=== PATIENT | male | born 2000 | race Caucasian/White ===

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

== ENCOUNTER 2021-09-21 07:17 | Inpatient (IN) | payer MEDICAID, OTHER ==
--- NOTE | 2021-09-21 08:44 | ED ---
Psych HPI - General Source: patient Mode of arrival: ambulatory <Farzana Recinos - Last Filed: 09/21/21 10:34> <Trent Mcintyre - Last Filed: 09/21/21 15:48> - General Chief Complaint: Psychiatric Symptoms Stated Complaint: mental health - History of Present Illness Initial Comments: 21-year-old male with no recorded medical problems presents to the emergency Department with suicidal thoughts. States he's been depressed for a significant period of time. Feelings have gotten worse over the past 3 days and he now feels suicidal. Does not have a plan. Has not done anything in an attempt to harm himself. He has never sought treatment before. He does not follow with a counselor take any medications. No hospitalizations. He smokes recreational marijuana. Denies use of alcohol or any intravenous drugs. States that majority of his depression stems from his relationships. is present in the room. Denies homicidal ideations. No auditory or visual hallucinations. No other alleviating, precipitating or modifying factors (Farzana Recinos) - Related Data Home Medications Medication Instructions Recorded Confirmed No Known Home Medications 09/21/21 09/21/21 Allergies Allergy/AdvReac Type Severity Reaction Status Date / Time No Known Allergies Allergy Verified 09/21/21 08:35 Review of Systems ROS Other: All systems not noted in ROS Statement are negative. <Farzana Recinos - Last Filed: 09/21/21 10:34> ROS Other: All systems not noted in ROS Statement are negative. <Trent Mcintyre - Last Filed: 09/21/21 15:48> ROS Statement: Those systems with pertinent positive or pertinent negative responses have been documented in the HPI. Past Medical History Past Medical History: No Reported History History of Any Multi-Drug Resistant Organisms: None Reported Past Surgical History: No Surgical Hx Reported Past Psychological History: No Psychological Hx Reported Smoking Status: Never smoker Past Alcohol Use History: Occasional Past Drug Use History: None Reported, Marijuana <Farzana Recinos - Last Filed: 09/21/21 10:34> General Exam Limitations: no limitations General appearance: alert, in no apparent distress Head exam: Present: atraumatic, normocephalic, normal inspection Eye exam: Present: normal appearance, PERRL, EOMI. Absent: scleral icterus, conjunctival injection, periorbital swelling ENT exam: Present: normal exam, mucous membranes moist Neck exam: Present: normal inspection. Absent: tenderness, meningismus, lymphadenopathy Respiratory exam: Present: normal lung sounds bilaterally. Absent: respiratory distress, wheezes, rales, rhonchi, stridor Cardiovascular Exam: Present: regular rate, normal rhythm, normal heart sounds. Absent: systolic murmur, diastolic murmur, rubs, gallop, clicks GI/Abdominal exam: Present: soft, normal bowel sounds. Absent: distended, tenderness, guarding, rebound, rigid Extremities exam: Present: normal inspection, full ROM, normal capillary refill. Absent: tenderness, pedal edema, joint swelling, calf tenderness Back exam: Present: normal inspection Neurological exam: Present: alert, oriented X3, CN II-XII intact Psychiatric exam: Present: depressed Skin exam: Present: warm, dry, intact, normal color. Absent: rash <Farzana Recinos - Last Filed: 09/21/21 10:34> Course Vital Signs 09/21/21 09/21/21 07:23 09:01 Temperature 98.4 F 96.4 F L Pulse Rate 83 77 Respiratory 20 14 Rate Blood Pressure 141/79 101/62 O2 Sat by Pulse 99 96 Oximetry Medical Decision Making <Farzana Recinos - Last Filed: 09/21/21 10:34> <Trent Mcintyre - Last Filed: 09/21/21 15:48> - Medical Decision Making Upon arrival the patient is placed into room 13. Thorough history and physical exam was performed. Patient is cleared for EPS evaluation at this time as he is not intoxicated. We are currently awaiting the recommendations (Farzana Recinos) Patient had been evaluated by EPS and felt to require inpatient psychiatric evaluation treatment. He will be voluntarily admitted to this institution. (Trent Mcintyre) Disposition <Farzana Recinos - Last Filed: 09/21/21 10:34> Is patient prescribed a controlled substance at d/c from ED?: No Decision to Admit Reason: Admit from EC Decision Date: 09/21/21 Decision Time: 15:48 <Trent Mcintyre - Last Filed: 09/21/21 15:48> Clinical Impression: Depression, Suicidal ideation Disposition: ADMITTED IP TO THIS HOSP Condition: Stable Referrals: None,Stated [Primary Care Provider] - 1-2 days
[2021-09-21 20:16] LABS: Basophils % (A) 1 %; Eosinophils # (A) 0.1 k/uL (0-0.7); Eosinophils % (A) 2 %; HCT 45.4 % (39.0-53.0); HGB 15.3 gm/dL (13.0-17.5); Lymphocytes # (A) 1.2 k/uL (1.0-4.8); Lymphocytes % (A) 25 %; MCH 30.7 pg (25.0-35.0); MCHC 33.8 g/dL (31.0-37.0); MCV 90.8 fL (80.0-100.0); Mean Platelet Volume 7.4; Monocytes # (A) 0.3 k/uL (0-1.0); Monocytes % (A) 7 %; Neutrophils # (A) 3.1 k/uL (1.3-7.7); Neutrophils % (A) 64 %; Platelet Count 246 k/uL (150-450); RDW 12.8 % (11.5-15.5); WBC 4.8 k/uL (3.8-10.6)
[2021-09-21 20:20] LABS: ALT 14 U/L (4-49); AST 18 U/L (17-59); African American GFR (CKD) >90 (>60 ml/min/1.73 sqM); Albumin 4.5 g/dL (3.5-5.0); Alkaline Phosphatase 42 U/L (38-126); Amphetamine Screen,Urine Not Detected (NotDetected); Anion Gap 9 mmol/L; Barbiturate Screen,Urine Not Detected (NotDetected); Benzodiazepines Screen,Urine Not Detected (NotDetected); Blood Urea Nitrogen 14 mg/dL (9-20); Calcium 9.8 mg/dL (8.4-10.2); Carbon Dioxide 30 mmol/L (22-30); Chloride 99 mmol/L (98-107); Cocaine Screen,Urine Not Detected (NotDetected); Glucose 91 mg/dL (74-99); Methadone Screen, Urine Not Detected (NotDetected); Non-African American GFR(CKD) >90 (>60 ml/min/1.73 sqM); Opiate Screen,Urine Not Detected (NotDetected); Oxycodone Screen, Urine Not Detected (NotDetected); Phencyclidine Screen,Urine Not Detected (NotDetected); Potassium 4.7 mmol/L (3.5-5.1); Sodium 138 mmol/L (137-145); Total Bilirubin 0.8 mg/dL (0.2-1.3); Total Protein 7.6 g/dL (6.3-8.2); Tricyclic Antidepressant,Urine Not Detected (NotDetected); Urn Cannabinoid Scrn Detected (NotDetected)
[2021-09-22] MEDS ORDERED: MAG HYDROX/AL HYDROX/SIMETH 30 ML CUP PO PRN (10:23)
[2021-09-22] MEDS ORDERED: MAGNESIUM HYDROXIDE 2,400 MG/10 ML CUP PO PRN (10:23)
[2021-09-22] MEDS ORDERED: HALOPERIDOL LACTATE 5 MG/ML 1 ML VIAL IM PRN (10:23)
[2021-09-22] MEDS ORDERED: LORazepam 1 MG TAB PO PRN (10:23)
[2021-09-22] MEDS ORDERED: ACETAMINOPHEN TAB 325 MG TAB PO PRN (10:23)
[2021-09-22] MEDS ORDERED: FLUoxetine HCL 20 MG CAP PO STA (13:48)
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
[2021-09-22] MEDS: traZODone HCL 100 MG TAB PO SCH (22:58)
--- NOTE | 2021-09-23 01:59 | P.CONS ---
History of Present Illness - Reason for Consult Consult date: 09/22/21 - History of Present Illness The patient is a 21-year-old male with no known PMH who presented to the emergency room with complaints of depression and suicidal ideation. The patient was admitted to the mental health unit where he was seen and evaluated. The patient reports that he recently found out that his is 11 someone else and that she is leaving him, which has led him to contemplate suicide. He denied any specific plan on how to harm himself. He denied any additional complaints. Denied chest pain, SOB, fever, chills, cough, nausea, vomiting, diarrhea. He reports recreational marijuana use but denied smoking or any additional substance use. Review of systems: Pertinent positives and negatives as discussed in HPI, a complete review of systems was performed and all other systems are negative. Physical examination: General: non toxic, no distress, appears at stated age, normal weight Derm: no unusual rashes/lesions no unusual ecchymoses, warm, dry Head: atraumatic, normocephalic, symmetric Eyes: EOMI, no lid lag, anicteric sclera, pupils equal round reactive to light ENT: Nose and ears atraumatic, no thrush, no pharyngeal erythema Neck: No thyromegaly, no cervical lymphadenopathy, trachea midline, supple Mouth: no lip lesion, mucus membranes moist Cardiovascular: S1S2 reg, no murmur, positive posterior tibial pulse bilateral, no edema, capillary refill less than 2 seconds Lungs: CTA bilateral, no rhonchi, no rales , no accessory muscle use Abdominal: soft, nontender to palpation, no guarding, no appreciable organomegaly, normal bowel sounds Ext: no gross muscle atrophy, muscle strength 5 out of 5 in all 4 extremities grossly, no contractures, Neuro: CN II-XI grossly intact, light touch intact all 4 extremities, finger to nose within normal limits, Psych: Alert, oriented, appropriate affect Assessment/plan Marijuana abuse -Advised on the importance of cessation Depression and suicidal ideation -Psychiatry Thank you for allowing us to participate in the care of this patient. We will follow peripherally. Do not hesitate to contact us with questions. Someone can be reached from the [facility] hospitalist group at all hours of the day at [phone]. Past Medical History Past Medical History: No Reported History History of Any Multi-Drug Resistant Organisms: None Reported Past Surgical History: No Surgical Hx Reported Past Psychological History: No Psychological Hx Reported Smoking Status: Never smoker Past Alcohol Use History: Occasional Past Drug Use History: None Reported, Marijuana Medications and Allergies Home Medications Medication Instructions Recorded Confirmed Type No Known Home Medications 09/21/21 09/21/21 History Allergies Allergy/AdvReac Type Severity Reaction Status Date / Time No Known Allergies Allergy Verified 09/21/21 08:35 Results CBC & Chem 7: 09/21/21 20:12 09/21/21 19:30
[2021-09-23 06:59] VITALS: RESP 14
[2021-09-23] MEDS: NICOTINE 14MG/24HR PATCH TRANSDERM SCH (07:42)
[2021-09-23] MEDS: FLUoxetine HCL 10 MG CAP PO SCH (07:42)
[2021-09-23 07:52] LABS: Basophils % (A) 1 %; Eosinophils # (A) 0.1 k/uL (0-0.7); Eosinophils % (A) 1 %; HCT 47.8 % (39.0-53.0); HGB 16.3 gm/dL (13.0-17.5); Lymphocytes # (A) 2.1 k/uL (1.0-4.8); Lymphocytes % (A) 34 %; MCH 31.2 pg (25.0-35.0); MCV 91.5 fL (80.0-100.0); Mean Platelet Volume 7.3; Monocytes # (A) 0.5 k/uL (0-1.0); Monocytes % (A) 7 %; Neutrophils # (A) 3.4 k/uL (1.3-7.7); Neutrophils % (A) 54 %; Platelet Count 280 k/uL (150-450); RBC 5.22 m/uL (4.30-5.90); RDW 13.2 % (11.5-15.5); WBC 6.2 k/uL (3.8-10.6)
[2021-09-23 08:09] LABS: ALT 15 U/L (4-49); AST 19 U/L (17-59); African American GFR (CKD) >90 (>60 ml/min/1.73 sqM); Alkaline Phosphatase 52 U/L (38-126); Anion Gap 9 mmol/L; Bilirubin, Delta 0.2 mg/dL (0.0-0.2); Bilirubin,Unconjugated 1.4 mg/dL (0.0-1.1); Blood Urea Nitrogen 15 mg/dL (9-20); Calcium 10.4 mg/dL (8.4-10.2); Carbon Dioxide 27 mmol/L (22-30); Chloride 103 mmol/L (98-107); Glucose 102 mg/dL (74-99); Non-African American GFR(CKD) >90 (>60 ml/min/1.73 sqM); Potassium 4.1 mmol/L (3.5-5.1); Sodium 139 mmol/L (137-145); Total Bilirubin 1.6 mg/dL (0.2-1.3); Total Protein 8.4 g/dL (6.3-8.2)
--- NOTE | 2021-09-23 12:04 | P.PN ---
Progress Note - Text Progress Note Date: 09/23/21 Interval History: Patient was seen wandering the hallways and was directable and agreeable to speak with check writer in the office. The patient reports that he has given it some thought and is feeling better. He reports that he will be staying with family members upon discharge. He understands that important thing in his life is his children. He is not reporting any suicidal or homicidal ideation, intention, and/or plan. He is denying any auditory or visual hallucinations. He is not reporting any paranoia or other delusions. The patient has been adherent with his medications and reports that he experienced some nausea however states that the nausea subsided shortly after. He is otherwise not reporting any issues regarding his sleep or his appetite. He has been attending groups with a high- level participation. Mental Status Exam: General Appearance: Patient appears to be stated age is alert, directable, and cooperative. Behavior: Patient is calmly seated without any agitated behavior. Speech: Patient's speech is fluent and nonpressured. Mood/Affect: Mood is improving mildly, affect is congruent and constricted. Suicidality/Homicidality: Patient denies having any suicidal or homicidal ideation intent or plan. Perceptions: Patient denies any visual hallucinations and denies any auditory hallucinations Though content/process: There is no evidence of any delusional thought content and thought process is linear and goal-directed. Memory and concentration: AOX3, grossly intact for the purposes of this session Judgment and insight: Improving mildly Vital Signs Temp 97.4 F L 09/23/21 06:58 Pulse 117 H 09/23/21 06:58 Resp 14 09/23/21 06:58 BP 118/76 09/21/21 22:27 Pulse Ox 97 09/23/21 06:58 Laboratory Results - Last 24 Hours 09/23/21 09/23/21 06:52 06:52 WBC 6.2 RBC 5.22 Hgb 16.3 Hct 47.8 MCV 91.5 MCH 31.2 MCHC 34.0 RDW 13.2 Plt Count 280 MPV 7.3 Neutrophils % 54 Lymphocytes % 34 Monocytes % 7 Eosinophils % 1 Basophils % 1 Neutrophils # 3.4 Lymphocytes # 2.1 Monocytes # 0.5 Eosinophils # 0.1 Basophils # 0.0 Sodium 139 Potassium 4.1 Chloride 103 Carbon Dioxide 27 Anion Gap 9 BUN 15 Creatinine 1.03 Est GFR (CKD-EPI)AfAm >90 Est GFR (CKD-EPI)NonAf >90 Glucose 102 H Calcium 10.4 H Total Bilirubin 1.6 H Conjugated Bilirubin 0.0 Unconjugated Bilirubin 1.4 H Delta Bilirubin 0.2 AST 19 ALT 15 Alkaline Phosphatase 52 Total Protein 8.4 H Albumin 5.0 TSH 2.840 Assessment Major depressive disorder Cannabis use disorder Plan: -Patient continues to meet criteria for inpatient psychiatric admission for symptom stabilization and safety. Patient has signed adult voluntary form and medication consent and was placed in patient's chart. -Medications: Prozac 30 mg by mouth daily for depression/anxiety Trazodone 100 mg by mouth at bedtime for depression/insomnia -When necessary Ativan and Haldol for agitation/aggression. -SW on board for discharge planning. Encouraged the patient to participate in milieu.
[2021-09-23] MEDS: traZODone HCL 100 MG TAB PO SCH (20:12)
[2021-09-24 05:18] VITALS: BP 110/79; PULSE 126; TEMP 97.1
[2021-09-24] MEDS: NICOTINE 14MG/24HR PATCH TRANSDERM SCH (08:21)
[2021-09-24] MEDS: FLUoxetine HCL 10 MG CAP PO SCH (08:21)
--- NOTE | 2021-09-24 12:41 | P.DS ---
Providers Date of admission: 09/21/21 20:25 Expected date of discharge: 09/24/21 Attending physician: Luigi Carlos MD Consults: 09/22/21 10:23 Consult Physician Routine Consulting Provider: Luigi Carlos Consult Reason/Comments: Inpatient Mental Health Do you want consulting provider notified?: Already Contacted Primary care physician: Stated None - Discharge Diagnosis(es) (1) Major depressive disorder Current Visit: Yes Status: Acute Priority: High (2) Cannabis abuse Current Visit: Yes Status: Chronic Priority: Medium Hospital Course: Admission HPI: Patient is a , employed, 21-year-old male with no significant psychiatric history presented to the hospital with suicidal ideation in the context of marital stressors. Patient presented to the hospital on 09/21/2021, brought into the hospital for suicidal ideation. Patient reports that he has been experiencing significant marital stressors for the past few weeks. Reports that his recently told him that she is desiring a divorce. Furthermore, the patient reports that his has been seeing someone else. He reports that he feels "destroyed." Endorses significant symptoms of depression including feeling worthless, lonely, not addressing his hygiene and grooming, and not sleeping or eating for the past 2 days. He expresses that when he was getting ready for work yesterday morning, he began experiencing significant suicidal thoughts. He denies any intention or plan. He denies any homicidal ideation, intention, and/or plan. The patient does not report any significant symptoms of bipolar disorder. He denies any increased goal-directed activity, excessive energy, or grandiosity. He denies any history of auditory or visual hallucinations. He denies any paranoia or other delusions. The patient does not report any significant history of trauma. He reports that his father would at times be verbally aggressive with him, special in his father's drinking, however he reports that he was never subject to any significant trauma. He does report a history of self-injurious behavior but states that he has not done so since he was 14 years old. He reports that he would occasionally cut his wrists when he was 14. He denies that any of these attempts were with any intention to take his life. Patient states that he has never been diagnosed with any mental illness in the past. Patient denies being on any psychiatric medications. Patient denies any previous psychiatric hospitalizations. Patient denies any psychiatric outpatient follow-up. Patient denies any history of suicide attempts in the past. Hospital course: Upon admission to the unit patient was initially endorsing significant depression in the context of marital stressors. Patient was however directable and agreeable to commence treatment. Patient got along well with other patients on the unit and followed unit protocol. Patient was compliant with the medications and denied any side effects throughout hospital course. Patient was started on Prozac and trazodone for management of depression. Patient spoke of his stressors and engaged in therapy both group and individual. Patient was also seen by medical team for history and physical exam. Throughout the course of the hospitalization patient gradually improved with regards to depression, and sleep and became future oriented with improved insight and judgment. On the day of discharge patient denied any suicidal or homicidal ideations intent or plan denied any auditory or visual hallucinations. Patient endorsed wanting to live for his health and family. The patient denied any access to guns or weapons. Patient denied any paranoia and did not endorse any delusions. Patient does not have a significant history of substance abuse however was counseled on abstaining from all substances including alcohol and marijuana. Patient was also counseled on the medications and need for regular compliance and was encouraged to follow-up with their outpatient appointment for mental health and also for primary care. Prior to discharge a family meeting will be arranged by manager social work to answer any questions and ensure safety upon discharge. Mental status exam: General Appearance: Patient appears to be stated age is alert, pleasant, and cooperative. Patient is in no acute distress and has fair hygiene and grooming Behavior: Patient is calmly seated without any agitated behavior. Speech: Patient's speech is fluent and nonpressured. Mood/Affect: Patient reports their mood is "much better", affect is congruent and euthymic. Suicidality/Homicidality: Patient denies having any suicidal or homicidal ideation intent or plan. Perceptions: Patient denies any auditory or visual hallucinations. Though content/process: There is no evidence of any delusional thought content and thought process is linear and goal-directed. Patient is future and goal oriented. Memory and concentration: AOX3, grossly intact for the purposes of this session. Can spell "WORLD" backwards correctly. Judgment and insight: Improved Vital Signs Temp 97.1 F L 09/24/21 05:16 Pulse 126 H 02/18/22 05:16 Resp 14 09/24/21 05:16 BP 110/79 09/24/21 05:16 Pulse Ox 97 09/23/21 06:58 Impression: Major depressive disorder Cannabis use disorder Plan: -Continue with discharge today as patient has improved and stabilized psychiatrically and is not currently an imminent threat to himself and/or others. -Continue medications: Prozac 20 mg by mouth daily for depression/anxiety Trazodone 100 mg daily at bedtime for insomnia -Patient was counseled on the need for medication compliance and appropriate follow-up at mental health and also primary care for medical issues. Patient verbalized understanding and agreed. -Social work to arrange for and conduct family meeting to ensure safety upon discharge and answer any questions/concerns Social work also to arrange for patients follow up appointments with the [facility] for psychiatric care along with follow up with primary care provider. -Patient counseled on abstaining from recreational drugs and marijuana and alcohol. Was informed/educated on the adverse effects on their physical and mental health. Patient verbally agreed and understood. -Patient was instructed to return to the hospital or seek immediate medical care if their psychiatric or medical symptoms do worsen or reoccur. -Psychoeducation and supportive therapy provided to patient. Risks and benefits of pharmacological treatment versus the risks and benefits of nontreatment weight and discussed. Informed consent discussion held. Common side effects of psychotropics discussed such as, but not limited to headache, GI disturbance, sexual dysfunction, movement disorders, sedation, and orthostatic hypotension. Life threatening and blackbox warnings of prescribed medications also discussed. Potential risks of operating a vehicle or heavy machinery discussed with patient at length. Advised on importance of compliance and a reliable and responsible manner. Patient advised to review FDA consumer labeling of all medications prior to taking. Patient verbalized understanding of potential risks, and agrees with current treatment plan. Patient advised to medically contact physician/emergency personnel if any acute changes in condition occur. Allergies Allergy/AdvReac Type Severity Reaction Status Date / Time No Known Allergies Allergy Verified 09/21/21 08:35 Laboratory Results WBC 6.2 k/uL (3.8-10.6) 09/23/21 06:52 RBC 5.22 m/uL (4.30-5.90) 09/23/21 06:52 Hgb 16.3 gm/dL (13.0-17.5) 09/23/21 06:52 Hct 47.8 % (39.0-53.0) 09/23/21 06:52 MCV 91.5 fL (80.0-100.0) 09/23/21 06:52 MCH 31.2 pg (25.0-35.0) 09/23/21 06:52 MCHC 34.0 g/dL (31.0-37.0) 09/23/21 06:52 RDW 13.2 % (11.5-15.5) 09/23/21 06:52 Plt Count 280 k/uL (150-450) 09/23/21 06:52 MPV 7.3 09/23/21 06:52 Neutrophils % 54 % 09/23/21 06:52 Lymphocytes % 34 % 09/23/21 06:52 Monocytes % 7 % 09/23/21 06:52 Eosinophils % 1 % 09/23/21 06:52 Basophils % 1 % 09/23/21 06:52 Neutrophils # 3.4 k/uL (1.3-7.7) 09/23/21 06:52 Lymphocytes # 2.1 k/uL (1.0-4.8) 09/23/21 06:52 Monocytes # 0.5 k/uL (0-1.0) 09/23/21 06:52 Eosinophils # 0.1 k/uL (0-0.7) 09/23/21 06:52 Basophils # 0.0 k/uL (0-0.2) 09/23/21 06:52 Sodium 139 mmol/L (137-145) 09/23/21 06:52 Potassium 4.1 mmol/L (3.5-5.1) 09/23/21 06:52 Chloride 103 mmol/L (98-107) 09/23/21 06:52 Carbon Dioxide 27 mmol/L (22-30) 09/23/21 06:52 Anion Gap 9 mmol/L 09/23/21 06:52 BUN 15 mg/dL (9-20) 09/23/21 06:52 Creatinine 1.03 mg/dL (0.66-1.25) 09/23/21 06:52 Est GFR (CKD-EPI)AfAm >90 (>60 ml/min/1.73 sqM) 09/23/21 06:52 Est GFR (CKD-EPI)NonAf >90 (>60 ml/min/1.73 sqM) 09/23/21 06:52 Glucose 102 mg/dL (74-99) H 09/23/21 06:[address] Glu mg/dL 98 09/21/21 20:12 Hemoglobin A1c 5.0 % (0.0-6.0) 09/21/21 20:12 Calcium 10.4 mg/dL (8.4-10.2) H 09/23/21 06:52 Total Bilirubin 1.6 mg/dL (0.2-1.3) H 09/23/21 06:52 Conjugated Bilirubin 0.0 mg/dL (0.0-0.3) 09/23/21 06:52 Unconjugated Bilirubin 1.4 mg/dL (0.0-1.1) H 09/23/21 06:52 Delta Bilirubin 0.2 mg/dL (0.0-0.2) 09/23/21 06:52 AST 19 U/L (17-59) 09/23/21 06:52 ALT 15 U/L (4-49) 09/23/21 06:52 Alkaline Phosphatase 52 U/L (38-126) 09/23/21 06:52 Total Protein 8.4 g/dL (6.3-8.2) H 09/23/21 06:52 Albumin 5.0 g/dL (3.5-5.0) 09/23/21 06:52 TSH 2.840 mIU/L (0.465-4.680) 09/23/21 06:52 Urine Opiates Screen Not Detected (NotDetected) 09/21/21 19:30 Ur Oxycodone Screen Not Detected (NotDetected) 09/21/21 19:30 Urine Methadone Screen Not Detected (NotDetected) 09/21/21 19:30 Ur Propoxyphene Screen Not Detected (NotDetected) 09/21/21 19:30 Ur Barbiturates Screen Not Detected (NotDetected) 09/21/21 19:30 U Tricyclic Antidepress Not Detected (NotDetected) 09/21/21 19:30 Ur Phencyclidine Scrn Not Detected (NotDetected) 09/21/21 19:30 Ur Amphetamines Screen Not Detected (NotDetected) 09/21/21 19:30 U Methamphetamines Scrn Not Detected (NotDetected) 09/21/21 19:30 U Benzodiazepines Scrn Not Detected (NotDetected) 09/21/21 19:30 Urine Cocaine Screen Not Detected (NotDetected) 09/21/21 19:30 U Marijuana (THC) Screen Detected (NotDetected) H 09/21/21 19:30 Coronavirus (PCR) Not Detected (Not Detectd) 09/21/21 19:42 Patient Condition at Discharge: Stable Plan - Discharge Summary New Discharge Prescriptions: New traZODone HCL [Desyrel] 100 mg PO HS 30 Days tab FLUoxetine HCL [PROzac] 20 mg PO DAILY 30 Days cap Discharge Medication List FLUoxetine HCL [PROzac] 20 mg PO DAILY 30 Days cap 09/24/21 [Rx] traZODone HCL [Desyrel] 100 mg PO HS 30 Days tab 09/24/21 [Rx] Follow up Appointment(s)/Referral(s): [facility] [NON-STAFF] - 1 Week Patient Instructions/Handouts: Depression (DC) Activity/Diet/Wound Care/Special Instructions: Activity and diet as tolerated. Avoid the use of street drugs and alcohol. Take all medications as prescribed. When you are in need of refills on your medications please contact your medical provider and/or outpatient psychiatrist to have this done. Please go to scheduled outpatient appointment for aftercare treatment. If symptoms return or become worse, call the crisis line at and/or go to the nearest emergency room for evaluation Discharge Disposition: HOME SELF-CARE
[2021-09-25] MEDS ORDERED: FLUoxetine HCL 20 MG CAP PO SCH (09:00)
== END 2021-09-24 14:57 | disposition home or self-care (01) | DRG 881 ==
LOC: EC 07:17 → 3MHU 20:25
PROVIDERS: ADMIT Psychiatry & Neurology Psychiatry; ATTEND Psychiatry & Neurology Psychiatry
DX: F32.9 Major depressive disorder, single episode, unspecified (principal); R45.851 Suicidal ideations; Z20.822 Contact with and (suspected) exposure to COVID-19; F41.9 Anxiety disorder, unspecified; G47.00 Insomnia, unspecified; Z63.5 Disruption of family by separation and divorce; Z91.52 Personal history of nonsuicidal self-harm; Z71.41 Alcohol abuse counseling and surveillance of alcoholic; Z71.51 Drug abuse counseling and surveillance of drug abuser; F12.90 Cannabis use, unspecified, uncomplicated
CPT/HCPCS: 36415; 80053; 80306; 82075; 82248; 83036; 84443; 85025; 87635; 99285